=== PATIENT | female | born 1980 | race Caucasian/White ===

== ENCOUNTER 2019-07-29 17:44 | Emergency (ER) | payer OTHER ==
[2019-07-29] MEDS ORDERED: Dexamethasone 4 MG TAB ONE (18:03)
[2019-07-29] MEDS ORDERED: diphenhydrAMINE 25 MG CAP ONE (18:03)
== END 2019-07-29 19:25 | disposition home or self-care (01) ==
LOC: ERS 17:44
DX: T78.1XXA Other adverse food reactions, not elsewhere classified, initial encounter (principal); F41.9 Anxiety disorder, unspecified
CPT/HCPCS: 99283; J8540; Q0163